=== PATIENT | male | born 1965 | race Caucasian/White ===

== ENCOUNTER → 2016-10-25 09:36 | Outpatient (CLI) | payer BC | END | disposition home or self-care (01) | LOC: D.CT 09:36 | DX: K14.9 Disease of tongue, unspecified (principal) ==

== ENCOUNTER 2017-04-24 20:07 | Emergency (ER) | payer BC | END 2017-04-24 22:12 | disposition home or self-care (01) | LOC: D.ER 20:07 | DX: Z76.0 Encounter for issue of repeat prescription (principal); R52 Pain, unspecified; Z87.891 Personal history of nicotine dependence ==

== ENCOUNTER 2017-10-30 22:41 | Emergency (ER) | payer MEDICAID ==
[2017-10-30 23:57] LABS: ALKALINE PHOSPHATASE 95 U/L (46-116); ALT (SGPT) 28 U/L (10-68); BILIRUBIN - TOTAL 0.16 mg/dL (0.2-1.3); CALC OSMOLALITY 280 mosm/kg (275-300); CALCIUM 9.3 mg/dL (8.5-10.1); CARBON DIOXIDE 28.3 mmol/L (21.0-32.0); CHLORIDE - SERUM 99 mmol/L (98-107); CREATININE - SERUM 0.9 mg/dL (0.6-1.3); GLUCOSE 104 mg/dL (74-106); POTASSIUM - SERUM 3.8 mmol/L (3.5-5.1); PROTEIN - SERUM 6.9 g/dL (6.4-8.2); SODIUM 137 mmol/L (136-145); UREA NITROGEN 32 mg/dL (7-18); eGFR NON AFRICAN AMERICAN > 90 mL/min (90-120)
[2017-10-31 00:18] LABS: HEMATOCRIT 27.4 % (42.0-54.0); HEMOGLOBIN 8.1 g/dL (13.5-17.5); LYMPHOCYTES 3.2 % (15-50); MCHC 29.6 g/dL (31.0-37.0); MCV 66.3 fL (80.0-100.0); MEAN PLATELET VOLUME 10.6 fL (7.4-10.4); NEUTROPHILS 89.2 % (40-80); PLATELET COUNT 429 10x3/uL (130-400); RBC 4.13 10x6/uL (4.20-6.10); RDW 18.4 % (11.5-14.5); WBC 10.4 10x3/uL (4.8-10.8)
[2017-10-31 00:20] LABS: MCH 19.6 pg (26.0-34.0)
[2017-10-31 05:09] LABS: APTT 24.4 SECONDS (22.8-39.4); INR 1.1 (0.85-1.17); PROTIME 13.8 SECONDS (11.6-15.0)
[2017-10-31 06:31] LABS: HEMATOCRIT 21.6 % (42.0-54.0); HEMOGLOBIN 6.3 g/dL (13.5-17.5)
[2017-10-31 12:59] LABS: HEMATOCRIT 29.6 % (42.0-54.0); HEMOGLOBIN 9.3 g/dL (13.5-17.5)
[2017-10-31 20:42] LABS: HEMATOCRIT 30.2 % (42.0-54.0); HEMOGLOBIN 9.3 g/dL (13.5-17.5)
[2017-11-01 04:55] LABS: BASOPHILS 0.2 % (0-2); HEMATOCRIT 30.1 % (42.0-54.0); HEMOGLOBIN 9.2 g/dL (13.5-17.5); IMMATURE GRANULOCYTES 0.1 % (0-5); LYMPHOCYTES 4.4 % (15-50); MCH 21.5 pg (26.0-34.0); MCHC 30.6 g/dL (31.0-37.0); MEAN PLATELET VOLUME 10.3 fL (7.4-10.4); MONOCYTES 2.3 % (2-11); RBC 4.27 10x6/uL (4.20-6.10); RDW 19.3 % (11.5-14.5); WBC 10.2 10x3/uL (4.8-10.8)
[2017-11-01 04:57] LABS: MCV 70.5 fL (80.0-100.0); PLATELET COUNT 281 10x3/uL (130-400)
[2017-11-01 05:10] LABS: ALBUMIN 2.5 g/dL (3.4-5.0); ALKALINE PHOSPHATASE 76 U/L (46-116); BILIRUBIN - TOTAL 0.45 mg/dL (0.2-1.3); CALCIUM 9.6 mg/dL (8.5-10.1); CARBON DIOXIDE 27.3 mmol/L (21.0-32.0); CHLORIDE - SERUM 105 mmol/L (98-107); CREATININE - SERUM 0.8 mg/dL (0.6-1.3); GLUCOSE 85 mg/dL (74-106); POTASSIUM - SERUM 4.2 mmol/L (3.5-5.1); PROTEIN - SERUM 5.6 g/dL (6.4-8.2); SODIUM 140 mmol/L (136-145); eGFR NON AFRICAN AMERICAN > 90 mL/min (90-120)
[2017-11-01 05:20] LABS: ALT (SGPT) 20 U/L (10-68); CALC OSMOLALITY 279 mosm/kg (275-300); UREA NITROGEN 18 mg/dL (7-18)
[2017-11-01 12:37] LABS: BASOPHILS 0.2 % (0-2); EOSINOPHILS 1.3 % (0-7); HEMATOCRIT 30.6 % (42.0-54.0); HEMOGLOBIN 9.4 g/dL (13.5-17.5); IMMATURE GRANULOCYTES 0.2 % (0-5); LYMPHOCYTES 3.2 % (15-50); MCH 21.6 pg (26.0-34.0); MCHC 30.7 g/dL (31.0-37.0); MCV 70.3 fL (80.0-100.0); MEAN PLATELET VOLUME 10.3 fL (7.4-10.4); MONOCYTES 1.9 % (2-11); NEUTROPHILS 93.2 % (40-80); PLATELET COUNT 277 10x3/uL (130-400); RBC 4.35 10x6/uL (4.20-6.10); RDW 19.7 % (11.5-14.5); WBC 11.9 10x3/uL (4.8-10.8)
== END 2017-11-01 15:54 | disposition other institution (70) ==
LOC: D.ER 22:41
PROVIDERS: Family Medicine
DX: D64.9 Anemia, unspecified (principal); D50.0 Iron deficiency anemia secondary to blood loss (chronic); K92.2 Gastrointestinal hemorrhage, unspecified